=== PATIENT | male | born 1935 | race Caucasian/White ===

== ENCOUNTER → 2018-09-28 | Outpatient (CLI) | payer OTHER ==
[2016-02-09 06:45] VITALS: BP 103/71
[~2018-09-28] MED LIST: AMLO5TAB10 PO; APIX5TAB PO; CHOL2000 PO; LEVO50TA5 PO; LOSA1TAB19 PO; LOSA1TAB22 PO; METO-269 PO; METO25TA4 PO; REGADENOSON 0.4 MG/5 ML DISP.SYRIN. IV ONE; SACU1TAB7 PO; SIMV40TA3 PO; TAMS0.4C97 PO; TICA90TA PO; TRAZ-118 PO; WARF-31 PO; WARF-78 PO; WARF2.5T71 PO; losartan
--- NOTE | 2018-09-28 12:46 | CARD ---
MR#: [id number] Date of Study: 09/28/2018 Ordering Physician: ZAFAR ORELLANA, Referring Physician: ZAFAR ORELLANA, Tech: Silvia Liu [facility] APPROVED REPORT EXAM: Two-dimensional and M-mode echocardiogram with Doppler and color Doppler. Other Information Quality : AverageHR: 86bpm Rhythm : Atrial Fibrillation INDICATION Dyspnea 2D DIMENSIONS RVDd2.8 (2.9-3.5cm)Left Atrium(2D)4.7 (1.6-4.0cm) IVSd1.4 (0.7-1.1cm)Aortic Root(2D)3.6 (2.0-3.7cm) LVDd5.9 (3.9-5.9cm)LVOT Diameter2.3 (1.8-2.4cm) PWd1.1 (0.7-1.1cm)LVDs5.1 (2.5-4.0cm) FS (%) 14.2 %SV52.1 ml LVEF(%)29.6 (>50%) M-Mode DIMENSIONS Left Atrium(MM)3.75 (2.5-4.0cm)Aortic Root4.16 (2.2-3.7cm) Aortic Valve AoV Peak Henrique.127.9cm/sAoV VTI20.8cm AO Peak GR.6.5mmHgLVOT Peak Henrique.86.0cm/s AO Mean GR.3mmHgAVA (VMAX)2.86cm2 ELIN (VTI)2.02bj5ZJ P 1/2 Hiuv593bw Mitral Valve MV E Zmaxdpth49.7cm/sMV DECEL RHUZ804lo MV A Iglavolu18.4cm/sE/A Ratio2.4 Pulmonary Valve PV Peak Ndojcqgw82.1cm/s Tricuspid Valve TR P. Gahdqnea846lx/sRAP KKKMANLS1zeIf TR Peak Gr.79neWoTBMG94rjGd LEFT VENTRICLE The Left Ventricle is borderline dilated. There is mild concentric left ventricular hypertrophy. The ejection fraction is severely impaired. The Ejection Fraction is 25%. There is global hypokinesis of the left ventricle. Tissue Doppler imaging reveals moderate left ventricular diastolic dysfunction. RIGHT VENTRICLE The right ventricle is normal size. There is normal right ventricular wall thickness. RV Systolic fun ction is mildly reduced. ATRIA The left atrium is moderately dilated. The right atrium is moderately dilated. The interatrial septum is intact with no evidence for an atrial septal defect or patent foramen ovale as noted on 2-D or Do ppler imaging. AORTIC VALVE The aortic valve is calcified but opens well. The aortic valve is trileaflet. Doppler and Color Flow revealed mild to moderate aortic regurgitation. There is no significant aortic valvular stenosis. The re is no aortic valvular vegetation. MITRAL VALVE The mitral valve is normal in structure and function. There is no evidence of mitral valve prolapse. There is no mitral valve stenosis. Doppler and Color-flow revealed trace to mild mitral regurgitation . TRICUSPID VALVE The tricuspid valve is normal in structure and function. Doppler and Color Flow revealed trace tricus pid regurgitation. There is mild pulmonary hypertension. The PA pressure was estimated at 30 mmHg. Th ere is no tricuspid valve prolapse or vegetation. There is no tricuspid valve stenosis. PULMONIC VALVE Doppler and Color Flow revealed trace pulmonic valvular regurgitation. There is no pulmonic valvular stenosis. GREAT VESSELS The aortic root is normal in size. The ascending aorta is Mildly dilated. The IVC is dilated and roque apses >50% with inspiration. PERICARDIAL EFFUSION There is no evidence of significant pericardial effusion. Critical Notification Critical Value: No <Conclusion> The ejection fraction is severely impaired. The Ejection Fraction is 25%. There is global hypokinesis of the left ventricle. Doppler and Color Flow revealed mild to moderate aortic regurgitation. Doppler and Color Flow revealed trace tricuspid regurgitation. There is mild pulmonary hypertension. The PA pressure was estimated at 30 mmHg. Signed by : Zafar Orellana, Electronically Approved : 09/28/2018 12:46:28
--- NOTE | 2018-09-28 14:51 | RAD ---
MR#: [id number] Date of Study: 09/28/2018 Ordering Physician: ZAFAR ORELLANA, Referring Physician: JIMMY BOWENS Tech: JS Pace APPROVED REPORT Test Type: Pharmacological Stress Nurse/Tech: Lana Barriga RN Test Indications: Dyspnea Cardiac History: CABG x3 09',, Hypertension,former smoker, colon CA Medications: See Electronic Medical Record Medical History: See Electronic Medical Record Resting ECG: a-fib Resting Heart Rate: 90 bpm Resting Blood Pressure: 113/68mmHg Pretest Chest Pain: No chest pain Nurse/Tech Notes Irregular rhythm,S1,S2 and lungs diminished throughout. Consent: The procedure was explained to the patient in lay terms. Informed consent was witnessed. Cortez eout was entered into [employer]. History and Stress Test performed by JS Pace Pharm. Details Pharmacologic stress testing was performed using 0.4mg per 5ml of regadenoson given intravenously ove r 7-10 seconds. Stress Symptoms No chest pain or symptoms. POST EXERCISE Reason for Termination: Infusion complete Target HR: Yes Max HR: 120 bpm Max Blood Pressure: 118/54mmHg Blood Pressure response to exercise: Normal blood pressure response during stress. Heart Rate response to exercise: WNL Chest Pain: No. Arrhythmia: Yes. PVCs ST Change: No. INTERPRETATION Stress EKG Conclusion: Baseline EKG showed atrial fibrillation. Non diagnostic changes at peak stres s. Imaging Protocol IMAGE PROTOCOL: Rest Tc-99m/stress Tc-99m 1 day Rest: Stress: Viability: Radiopharm.Tc99m EmmcsjpcjWe33v Sestamibi Dose10.8mCi 32mCi Duration 16min. 13min. Img Date 09/28/2018 09/28/2018 Inj-Img Uucv32unq. 60min. Rest Admin Site:IV - Right HandAdministrator:JS Pace Stress Admin Site: IV - Right HandAdministrator: JIMMY MuellerTCB, ARRT (R)(N) STRESS DATA End Diast. Vol.164.0mlLVEDV index BSA78.0ml End Syst. Vol.114.0mlLVESV index BSA54.0ml Myocardial Ivgn671.0gEject. Imywtfzi86.0% Stress Scores Regional WT3.00Summed WT44.00 Regional WM2.00Summed WM42.00 LV Perfusion Scintigraphic images showed small fixed defect involving the mid to distal anterior wall consistent w ith previous myocardial infarction without any reversibility. Wall Motion Moderate left ventricular systolic dysfunction with ejection fraction calculated at 30%. LV Perf. Quant 17 Seg. SSS5.00 17 Seg. SRS4.00 17 Seg. SDS2.00 Stress Defect Extent (% LAD)12.50Rest Defect Extent (% LAD)2.50Rev. Defect Extent (% LAD)0.00 Stress Defect Extent (% LCX) 10.00Rest Defect Extent (% LCX)6.30Rev. Defect Extent (% LCX)0.00 Stress Defect Extent (% RCA)0.00Rest Defect Extent (% RCA)4.40Rev. Defect Extent (% RCA)0.00 Stress Defect Extent (% TRANG)11.50Rest Defect Extent (% TRANG)8.30Rev. Defect Extent (% TRANG)0.00 Conclusion 1. Regadenoson cardioisotope stress test showed small infarct involving the mid to distal anterior wa ll without any ischemia. 2. Moderate left ventricular systolic dysfunction with ejection fraction calculated at 30%. 3. Intermediate risk for cardiac events based on diminished left ventricle systolic function. 4. Baseline rhythm is atrial fibrillation. Signed by : Gamal Silva, Electronically Approved : 09/28/2018 14:51:18
== END | disposition home or self-care (01) ==
LOC: NM 09:30
PROVIDERS: ATTEND Internal Medicine Cardiovascular Disease
DX: I35.1 Nonrheumatic aortic (valve) insufficiency (principal); I27.20 Pulmonary hypertension, unspecified; I10 Essential (primary) hypertension; Z87.891 Personal history of nicotine dependence; Z85.038 Personal history of other malignant neoplasm of large intestine; Z95.1 Presence of aortocoronary bypass graft
CPT/HCPCS: 78452; 93017; 93306; 96374; A9500; J2785

== ENCOUNTER 2018-11-03 10:10 | Outpatient (CLI) | payer OTHER ==
[~2018-11-03] VITALS: Ht 177.8 cm; Wt 90.7 kg
[~2018-11-03 10:10] MED LIST changes: -CHOL2000 PO; -LEVO50TA5 PO; -LOSA1TAB22 PO; -METO-269 PO; -REGADENOSON 0.4 MG/5 ML DISP.SYRIN. IV ONE; -SACU1TAB7 PO; -TAMS0.4C97 PO; -TICA90TA PO; -WARF-31 PO; -WARF2.5T71 PO
[2018-11-03] MEDS ORDERED: LEVO50TA5 PO (10:31)
[2018-11-03] MEDS ORDERED: WARF2.5T71 PO (10:31)
[2018-11-03] MEDS ORDERED: TAMS0.4C97 PO (10:31)
[2018-11-03] MEDS ORDERED: WARF-31 PO (10:31)
[2018-11-03] MEDS ORDERED: CHOL2000 PO (10:31)
[2018-11-03 10:40] VITALS: BP 125/72
[2018-11-03 11:05] LABS: CALCIUM 9.4 mg/dL (8.5-10.1); CREATININE 1.6 mg/dL (0.7-1.3); GFR 41.4; POTASSIUM 4.1 mmol/L (3.5-5.1)
[2018-11-03 11:07] LABS: HEMATOCRIT 44.3 % (39.0-53.0); HEMOGLOBIN 15.4 g/dL (13.0-17.5); RED BLOOD COUNT 5.15 x10^6/uL (4.30-5.70); RED CELL DISTRIBUTION WIDTH 14.8 % (11.5-14.5); WHITE BLOOD COUNT 8.8 x10^3/uL (4.0-11.0)
[2018-11-03 11:26] LABS: PROTHROMBIN TIME PATIENT 27.1 SEC (11.7-14.0)
--- NOTE | 2018-11-03 11:47 | NUR ---
Per Dr. Christie cardiac cath cancelled for today due to INR 2.5. Patient has been taking Coumadin daily, took last dose yesterday.
== END 2018-11-03 12:00 | disposition home or self-care (01) ==
LOC: CCL 10:10
PROVIDERS: ATTEND Internal Medicine Cardiovascular Disease
DX: I25.10 Atherosclerotic heart disease of native coronary artery without angina pectoris (principal); Z53.8 Procedure and treatment not carried out for other reasons
CPT/HCPCS: 36415; 80048; 85027; 85610

== ENCOUNTER 2018-11-10 10:01 | Observation (INO) | payer OTHER ==
[~2018-11-10] VITALS: Ht 177.8 cm; Wt 89.6 kg
[2018-11-10] VITALS (13 sets, daily range): BP systolic 106–178; BP diastolic 54–82
[~2018-11-10 10:01] MED LIST changes: +CHOL2000 PO; +LEVO50TA5 PO; +TAMS0.4C97 PO; +WARF-31 PO; +WARF2.5T71 PO
[2018-11-10 10:45] LABS: HEMATOCRIT 43.1 % (39.0-53.0); HEMOGLOBIN 14.7 g/dL (13.0-17.5); RED BLOOD COUNT 5.04 x10^6/uL (4.30-5.70); WHITE BLOOD COUNT 8.9 x10^3/uL (4.0-11.0)
[2018-11-10 10:48] LABS: CALCIUM 9.5 mg/dL (8.5-10.1); CREATININE 1.6 mg/dL (0.7-1.3); GFR 41.4; POTASSIUM 3.9 mmol/L (3.5-5.1)
[2018-11-10 10:54] LABS: PROTHROMBIN TIME PATIENT 16.7 SEC (11.7-14.0)
[2018-11-10] MEDS ORDERED: METO-269 PO (10:54)
[2018-11-10] MEDS ORDERED: IV NORMAL SALINE 1000ML BAG 1,000 ML IV SCH (11:15)
[2018-11-10] MEDS ORDERED: LIDOCAINE 1% PF 2 ML VIAL. ONE (11:17)
--- NOTE | 2018-11-10 11:23 | NUR ---
notified Dr. Christie of pt's labs. new order to start iv fluids tko
[2018-11-10] MEDS ORDERED: LIDOCAINE 1% Multi-Dose 20 ML VIAL. ONE (11:53)
[2018-11-10] MEDS ORDERED: fentaNYL PF VIAL 100 MCG/2 ML VIAL ONE (11:53)
[2018-11-10] MEDS ORDERED: HEPARIN for IV BOLUS 10,000 UNIT/10 ML VIAL. ONE (11:53)
[2018-11-10] MEDS ORDERED: MIDAZOLAM HCL/PF 2 MG/2 ML VIAL. ONE (11:53)
[2018-11-10] MEDS ORDERED: VERAPAMIL 5 MG/2 ML VIAL. ONE ×2 (11:53→12:31)
[2018-11-10] MEDS ORDERED: NITROGLYCERIN 200 MCG/2 ML SYRINGE FOR CATH/VASC LAB. ONE ×2 (11:53→12:31)
[2018-11-10] MEDS ORDERED: BIVALIRUDIN 250 MG VIAL. IV ONE ×2 (12:26→12:45)
[2018-11-10] MEDS ORDERED: LIDOCAINE 1% Multi-Dose 20 ML VIAL. INJ ONE (12:30)
[2018-11-10] MEDS ORDERED: fentaNYL PF VIAL 100 MCG/2 ML VIAL IV ONE (12:30)
[2018-11-10] MEDS ORDERED: LIDOCAINE 1% PF 2 ML VIAL. INJ ONE (12:30)
[2018-11-10] MEDS ORDERED: MIDAZOLAM HCL/PF 2 MG/2 ML VIAL. IV ONE (12:30)
[2018-11-10] MEDS ORDERED: IODIXANOL 320 MG/ML 100 ML VIAL. IART ONE (12:30)
[2018-11-10 12:41] LABS: BASE EXCESS ABG 1 mmol/L (-3-3); HCO3 ABG 27 mmol/L (21-28); PCO2 ABG 51 mmHg (35-46); PO2 ABG 115 mmHg (65-108); SAT O2 ABG 98 % (92-99)
[2018-11-10 12:42] LABS: FIO2 ABG 36%
[2018-11-10] MEDS ORDERED: VERAPAMIL 5 MG/2 ML VIAL. IART ONE (12:45)
[2018-11-10] MEDS ORDERED: NITROGLYCERIN 200 MCG/2 ML SYRINGE FOR CATH/VASC LAB. IART ONE (12:45)
[2018-11-10] MEDS ORDERED: TICAGRELOR 90 MG TABLET. ONE (12:56)
[2018-11-10] MEDS ORDERED: TICAGRELOR 90 MG TABLET. PO ONE (13:00)
[2018-11-10] MEDS ORDERED: LOSA1TAB22 PO (13:52)
[2018-11-10] MEDS ORDERED: TAMS0.4C97 PO (13:52)
[2018-11-10] MEDS ORDERED: WARF-31 PO (14:09)
[2018-11-10] MEDS ORDERED: WARF2.5T71 PO (14:09)
[2018-11-10] MEDS ORDERED: SIMV40TA3 PO (14:12)
[2018-11-10] MEDS ORDERED: WARFARIN 5 MG TABLET. PO SCH (16:00)
[2018-11-10] MEDS: METOPROLOL SUCC 24HR ER 50 MG TAB.ER.24H. PO SCH (16:16)
--- NOTE | 2018-11-10 17:17 | CARD ---
MR#: [id number] Date of Study: 11/10/2018 Ordering Physician: ZAFAR CHRISTIE, Referring Physician: ZAFAR CHRISTIE, Tech: RT Bobby (R) APPROVED REPORT Technologist: Marleny Guerra RT (R) Nurse: Mayda Soares R.N. Procedure(s) performed: Fluoro time: 14.8 minutes Dose: 120 Gycm2 Contrast: 120 cc Moderate sedation: 72 minutes LHC, Coronary angiography, Bypass angiography, PCI of the SVG to D1 HISTORY The patient is a 82 year-old male with a history of : coronary artery disease, hypertension, dyslipid emia. INDICATION The indication(s) include : positive stress test, unstable angina , dyspnea. [facility] Clinical Frailty Scale [facility] Clinical Frailty Scale: Moderately Frail Heart Failure Heart Failure: Yes If Yes, Newly Diagnosed: No If Yes, HF Type: Systolic If Yes, NYHA Class: Class II PROCEDURE NARRATIVE After explaining the risks and benefits of the procedure and alternatives, informed consent was obtai adryan. The patient was brought electively to the cardiac catheterization lab in a fasting state. A peter eout was performed confirming the patient's name, date of , procedure, and site of procedure. A ll necessary personnel were wearing the appropriate protective equipment and radiation monitor device s. (See nursing notes for medications administered). The right groin was sterilely prepped and drap ed in the usual fashion. The right groin was infiltrated with 10 mL of 2% lidocaine for subcutaneous anesthesia. A 6 F sheath was inserted into the right femoral artery without difficulty. Right and left coronary angiography was performed using a JR4 and JL4 catheter. Bypass angiography was perform ed with a JR4 catheter. Left ventricular end diastolic pressure was obtained with a pigtail catheter and pullback was performed after left ventriculography. All catheter exchanges and advancements were performed over a guidewire. At case completion the right femoral sheath was removed and hemostasis was achieved with an Angioseal Device after limited femoral angiography confirmed adequate vessel siz e and anatomy. There were no acute complications. HEMODYNAMICS: AO: 140/80 LVEDP 15 mm Hg No gradient on LV to aortic pullback. LEFT VENTRICULOGRAM: Deferred due to known EF of 30%. CORONARY ANGIOGRAPHY: LM is a large caliber vessel with normal angiographic appearance. LAD is a small caliber vessel that is seen to fill faintly via a HUI graft and the distal vessel is without significant disease. Ramus is a moderate caliber vessel with a proximal 100% occlusion. The distal vessel fills via a vein graft. LCx is a moderate caliber non-dominant vessel with mild luminal irregularities. OM1 is a moderate caliber vessel with mild luminal irregularities. RCA is a large caliber dominant vessel with normal angiographic appearance. RPDA is a moderate caliber vessels with a mid 100% occlusion. The distal vessel is seen to fill via a patent vein graft but the outflow is poor. BYPASS ANGIOGRAPHY: HUI to LAD - widely patent without anastomotic stenosis (Due to significant subclavian tortuosity, t he HUI was not injected selectively. SVG to RCA - Widely patent but the vessel distal to the anastomosis is small in caliber. SVG to Ramus - Has an ostial 90% stenosis. INTERVENTIONAL TECHQNIQUE: Bivalirudin was used for anticoagulation. Through a 6Fr JR4 guide catheter, a 0.014'' High Brew Coffeewater wire w as advanced to the distal ramus. Balloon angioplasty was performed with a Trek 3.0/12 mm balloon and then stented with Resolute 4.0/15 OLGA LIDIA at 14 yair. Final angiography revealed excellent stent expansion . A guideline was required to deliver the stent due to angulation and complex tortuousity, making thi s a complex case. Otherwise, no complications noted. The patient received Ticagrelor 180mg at [facility]. Syntax Score If Not STEMI or NSTE-ACS, Syntax Score: Intermediate INDIA Flow INDIA Flow (Pre-Intervention): INDIA-3 INDIA Flow (Post-Intervention): INDIA-3 Conclusion 1. Severe three vessel coronary artery disease. 2. 3/3 grafts patent. 3. Normal left sided filling pressures. 4. Successful PCI of the SVG to Ramus with a Resolute 4.0/15 OLGA LIDIA. Recommendations 1. Dyspnea is out of proportion to CAD. He has had chronic ischemic CMP from 2008. The LAD distal ant erior wall, apex and distal inferior wall supplied by a small caliber LAD and PDA area is likely infa rcted. 2. Consider outpt pulmonary w/u. 3. Cardiac rehab 4. Continue warfarin and Ticagrelor 90mg bid. Continue asa 81mg daily until therapeutic on warfarin. Signed by : Zafar Christie, Electronically Approved : 11/10/2018 17:16:44
[2018-11-10] MEDS ORDERED: WARFARIN 5 MG TABLET. PO ONE (17:30)
--- NOTE | 2018-11-10 18:11 | NUR ---
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 Vitals stable, right groin is soft, no bleeding. Patient accompanied by son and son translates for patient. Patient oriented to unit and routines and instructed to lay flat for 3 hours. Will continue to monitor.
[2018-11-10] MEDS ORDERED: SIMVASTATIN 40 MG TABLET. PO SCH (21:00)
[2018-11-10] MEDS ORDERED: TAMSULOSIN 0.4 MG CAP.ER.24H. PO SCH (21:00)
[2018-11-10] MEDS: TICAGRELOR 90 MG TABLET. PO SCH (21:53)
[2018-11-11 02:51] VITALS: BP 163/85
--- NOTE | 2018-11-11 05:40 | NUR ---
PT. WOULDN'T KEEP OXYGEN MONITORING PROB ON FOR NOC STUDY. HE KEPT RIPPING IT OF HIS FINGER. NURSE INFORMED ABOUT PT'S BEHAVIOR
--- NOTE | 2018-11-11 06:25 | NUR ---
Pt was confused and restless throughout shift, non combative or agitated, but was unable to obtain restful sleep. Pt is sudanese speaking only, language barrier added to difficulty. Pt removed his own IV @ 2200, and immediately removed O2 probe for nocturnal sleep study. Pt late in shift activated his own code blue button, granddaughter now at bedside to provide extra care. VSS, bed in low/locked position, call light within reach, will continue to monitor for status changes.
[2018-11-11 07:25] VITALS: BP 137/74
[2018-11-11] MEDS ORDERED: ASPIRIN ENTERIC COATED 81 MG TABLET.DR. PO SCH (08:00)
[2018-11-11 08:47] VITALS: BP 137/74
[2018-11-11] MEDS: METOPROLOL SUCC 24HR ER 50 MG TAB.ER.24H. PO SCH (08:47)
[2018-11-11] MEDS: TICAGRELOR 90 MG TABLET. PO SCH (08:47)
[2018-11-11] MEDS ORDERED: METOPROLOL SUCC 24HR ER 50 MG TAB.ER.24H. PO SCH (09:00)
[2018-11-11] MEDS ORDERED: TICA90TA PO (09:26)
[2018-11-11] MEDS ORDERED: SACU1TAB7 PO (09:26)
--- NOTE | 2018-11-11 10:14 | DISCH ---
DISCHARGE INSTRUCTIONS Condition on Discharge Condition on Discharge: Stable Activity After Discharge Activity Instructions for Disc: Activity as tolerated Lifting Instructions after Dis: No heavy lifting, No pulling or pushing, Do not lift >10 pounds Driving Instructions after Dis: Do not drive (for 4 days) Diet after Discharge Diet after Discharge: Cardiac Wound Incision Care Wound/Incision Care: No wound care needed Checks after Discharge Checks after discharge: Check blood press - daily Follow-Up Follow up with: PCP 1-2 weeks Follow Up With: Dr. Christie 11/25/18 for BP check and 12/28/18 for hospital f/u Treatment/Equipment after DC Adaptive Equipment Issued: None ADIS KURTZ APRN Nov 11, 2018 10:14
--- NOTE | 2018-11-11 10:41 | NUR ---
Discharge instructions reviewed with patients son. Follow ups, prescriptions and samples given to patient. Son verbalizes understanding.
[2018-11-11] MEDS ORDERED: WARFARIN 2.5 MG TABLET. PO SCH (16:00)
--- NOTE | 2018-11-11 16:33 | PDOC3 ---
Discharge Summary Visit Information Date of Admission: Nov 10, 2018 Date of Discharge: Nov 11, 2018 Admitting Diagnosis Comment: CAD Dyspnea Chronic systolic HF ICM Persistent AFIB Hypertension Final Diagnosis CAD Dyspnea AFIB Chronic systolic HF ICM Hypertension Brief Hospital Course Allergies Allergies Coded Allergies Type Severity Reaction Last Updated Verified No Known Drug Allergies 11/09/13 No Vital Signs Vital Signs Date Time Temp Pulse Resp B/P (MAP) Pulse Ox O2 Delivery O2 Flow Rate FiO2 11/11/18 08:47 107 137/74 11/11/18 08:00 Room Air 11/11/18 07:25 97.6 20 98 97.6 11/10/18 15:00 2.0 Lab Results Laboratory Tests Test 11/10/18 10:25 11/10/18 12:37 White Blood Count 8.9 x10^3/uL (4.0-11.0) Red Blood Count 5.04 x10^6/uL (4.30-5.70) Hemoglobin 14.7 g/dL (13.0-17.5) Hematocrit 43.1 % (39.0-53.0) Mean Corpuscular Volume 86 fL (79-100) Mean Corpuscular Hemoglobin 29 pg (25-35) Mean Corpuscular Hemoglobin Concent 34 g/dL (31-37) Red Cell Distribution Width 15.0 % (11.5-14.5) Platelet Count 186 x10^3/uL (140-400) Prothrombin Time 16.7 SEC (11.7-14.0) Prothromb Time International Ratio 1.4 (0.8-1.1) Sodium Level 139 mmol/L (136-145) Potassium Level 3.9 mmol/L (3.5-5.1) Chloride Level 102 mmol/L (98-107) Carbon Dioxide Level 29 mmol/L (21-32) Anion Gap 8 (6-14) Blood Urea Nitrogen 24 mg/dL (8-26) Creatinine 1.6 mg/dL (0.7-1.3) Estimated GFR (Cockcroft-Gault) 41.4 Glucose Level 103 mg/dL (70-99) Calcium Level 9.5 mg/dL (8.5-10.1) O2 Saturation 98 % (92-99) Arterial Blood pH 7.35 (7.35-7.45) Arterial Blood pCO2 at Patient Temp 51 mmHg (35-46) Arterial Blood pO2 at Patient Temp 115 mmHg (65-108) Arterial Blood HCO3 27 mmol/L (21-28) Arterial Blood Base Excess 1 mmol/L (-3-3) FiO2 36% Brief Hospital Course Mr. Sanders is a 82 old male, with a history of CAD s/p CABG, Hypertension, CMP, and AFIB, who presented to the office with complaints of dyspnea. Echo showed LVEF 25%, which is basically unchanged from prior. Stress test notable for prior infarct, but no reversible ischemia. Due to ongoing complaints of dyspnea, patient underwent cardiac catheterization for definitive evaluation. Coronary angiogram notable for patent HUI to LAD and SVG to RCA. SVG to Ramus with a 90% ostial stenosis. Patient underwent successful PCI of the SVG to Ramus with a Resolute 4.0/15 OLGA LIDIA. Left sided filling pressures normal. Patient was monitored overnight without complications. Right groin arteriotomy site soft, clean, and dry. Neurovascular status intact. Lungs CTA. Dyspnea is out of proportion to CAD. Six-minute walk performed without desaturation. Consider outpatient pulmonary evaluation. DAPT with ASA and Brilinta initiated. Due to cardiomyopathy, we will discontinue Losartan/HCTZ and start Entresto 24/26mg PO BID. Patient to f/u in our office for BP check 11/25/18. Discharge Information Condition at Discharge: Improved Follow Up: Weeks (2 weeks for BP check. ) Disposition/Orders: D/C to Home Scheduled Cholecalciferol (Vitamin D3) (Vitamin D) 2,000 Unit Capsule, 1 CAP PO DAILY for supplement, #30 Ref 3 (Reported) Entered as Reported by: CELSO DAVID on 11/03/18 1031 Last Taken: Unknown Dose on 11/09/18 Last Action: Reviewed on 11/10/18 1352 by RICO RODRIGUEZ Losartan/Hydrochlorothiazide (Losartan-Hctz 100-25 Mg Tab) 1 Each Tablet, 1 TAB PO DAILY for htn, #30 Ref 5 (Reported) Entered as Reported by: RICO RODRIGUEZ on 11/10/18 1352 Last Taken: Unknown Dose on Unknown Date & Time Last Action: Reviewed on 11/10/18 1410 by RICO RODRIGUEZ Metoprolol Succinate (Toprol Xl) 50 Mg Tab.er.24h, 50 MG PO DAILY for FOR HYPERTENSION, #30 Ref 0 (Reported) Entered as Reported by: CELSO DAVID on 11/10/18 1054 Last Taken: Unknown Dose on 11/09/18 Last Action: Converted on 11/10/181410 by RICO RODRIGUEZ Sacubitril/Valsartan (Entresto 49 mg-51 mg Tablet) 1 Each Tablet, 0.5 EACH PO BID for heart failure for 30 Days, #30 Ref 2 Prescribed by: ADIS KURTZ APRN on 11/11/18 0926 Simvastatin (Simvastatin) 40 Mg Tablet, 1 TAB PO QHS for cholesterol, #30 Ref 5 (Reported) Entered as Reported by: RICO RODRIGUEZ on 11/10/18 141 Last Taken: Unknown Dose on Unknown Date & Time Last Action: Converted on 11/10/181411 by RICO RODRIGUEZ Tamsulosin Hcl (Flomax) 0.4 Mg Cap.er.24h, 1 CAP PO HS for prostate, #30 Ref 11 (Reported) Entered as Reported by: RICO RODRIGUEZ on 11/10/18 1352 Last Taken: Unknown Dose on Unknown Date & Time Last Action: Continued on 11/10/181410 by RICO RODRIGUEZ Ticagrelor (Brilinta) 90 Mg Tablet, 90 MG PO BID for coronary artery disease for 30 Days, #60 Ref 2 Prescribed by: ADIS KURTZ APRN on 11/11/18 0926 Warfarin Sodium (Warfarin Sodium) 2.5 Mg Tablet, 2.5 MG PO QMWF for blood thinner, (Reported) Entered as Reported by: RICO RODRIGUEZ on 11/10/18 140 Last Taken: Unknown Dose on Unknown Date & Time Last Action: Reviewed on 11/10/181409 by RICO RODRIGUEZ Warfarin Sodium (Warfarin Sodium) 5 Mg Tablet, 5 MG PO QTUTHSASU for blood thinner, #30 (Reported) Entered as Reported by: RICO RODRIGUEZ on 11/10/18 140 Last Taken: Unknown Dose on Unknown Date & Time Last Action: Converted on 11/10/181410 by RICO RODRIGUEZ Miscellaneous Medications [losartan] , (Reported) Entered as Reported by: STEFANIE MENDEZ on 02/08/16 1452 Patient Instructions Patient Instructions GENERAL INSTRUCTIONS: 1. Your dressing should be removed prior to leaving the hospital. 2. It is OK to shower the day after your procedure. 3. If you received stents, be sure to carry your stent information card with you in your wallet/purse at all times. 4. Call the office immediately at [phone] if you notice any fever or if there is redness, worsening tenderness/pain, increased bruising, or drainage from the puncture site. 5. Should you have bleeding from the site, lie down immediately & put pressure on the site. The pressure should be hard enough to stop the bleeding. Have the nearest person call 911. DO NOT try to drive to the ER with active bleeding. 6. If you notice a change in color, coolness to touch, or loss of feeling in the affected extremity, come to the emergency room. Please have someone drive you or call 911 if no one is available. DO NOT drive yourself. 7. If you normally take glucophage (metformin), please do not take this medicine for 48 hours following your procedure. 8. DO NOT STOP TAKING YOUR PLAVIX OR ASPIRIN UNLESS IT IS CLEARED BY A MAMMOGRAPHY SUPERVISOR OF YOUR LEDGE MAN AT OUR OFFICE. 9. QUIT SMOKING: the [place] [employer], [place] [employer], & [place] [employer] have cessation resources available on their websites 10. Please have someone available to drive you home from the hospital as you may be limited by sedation medications given during the procedure. Femoral (Groin) access: 1. Do no lifting, pushing, pulling, bending, stooping, or recurrent stair climbing for 3 days following your procedure. 2. Once past the first 3 days, do not do any HEAVY exertion or lifting for one week following the procedure. No gym workouts, running, lifting greater than a gallon of milk, etc 3. Do not submerge in bath or pool for one week. OK to drive 3 days following your procedure, but if going long distance, do not go alone & take hourly breaks to get out of car and walk around. Radial Artery (Wrist) access: 1. No pushing, pulling, lifting, typing, or anything that requires repetitive use/movement of the affected wrist for 3 days following your procedure. 2. OK to drive the day following your procedure. (This is because of effects of sedating medications.) Call the office at [phone] for any questions or concerns. ADIS KURTZ APRN Nov 11, 2018 16:33
--- NOTE | 2018-11-21 15:43 | PDOC ---
Provider Note Provider Note CARDIOLOGY HISTORY AND PHYSICAL - LATE ENTRY 11/10/2018 Procedure / Surgery: Cardiac catheterization with possible PCI Procedure / Surgery Date: November 10, 2018 Physician: florencia Type of Anesthesia: Moderate sedation Current condition / Illness 82-year-old male with exertional dyspnea and history of coronary artery disease status post bypass. He was evaluated in the office for significant lifestyle limiting dyspnea and after now abnormal stress test was brought back to the office to discuss the risks and benefits of further invasive evaluation. He presents today for elective outpatient cardiac catheterization Past Medical History 1. Atrial fibrillation 2. HTN 3. CAD s/p CABG Past Surgical History Current medications / Dosages: See MRAD - reviewed and authenticated as entered by the nurse. Allergies / Medication Reactions: NKDA Review of Systems: notable for exertional dysnpea. Otherwise, negative for 05/01 systems reviewed. Physician Exam and Overall Clinical Assessment Height and Weight, Blood Pressure, Pulse, Respiratory Rate, Temperature Cardiovascular Irr irr, no m/r/g. Respiratory CTAB Abdomen Soft, NT/ND. +BS Other as appropriate Mental Status: A/O x 3 Ancillary Tests / Indications MPI - EF 30%. anterior infarct. Impression 1. CAD with exertional dyspnea and abnormal stress test. Plan -Cardiac cath Post Procedure Sedation Recovery Note: Patient to received fentanyl and versed for sedation ZAFAR ORELLANA MD November 21, 2018 15:43
== END 2018-11-11 10:43 | disposition home or self-care (01) ==
LOC: CCL 10:01 → 2 NORTH 12:15
PROVIDERS: ADMIT Internal Medicine Cardiovascular Disease; ATTEND Internal Medicine Cardiovascular Disease
DX: I25.10 Atherosclerotic heart disease of native coronary artery without angina pectoris (principal); I48.91 Unspecified atrial fibrillation; I43 Cardiomyopathy in diseases classified elsewhere; I11.0 Hypertensive heart disease with heart failure; I50.22 Chronic systolic (congestive) heart failure; Z95.1 Presence of aortocoronary bypass graft
CPT/HCPCS: 36415; 36600; 80048; 82805; 85027; 85610; 93459; 94618; 96374; 96375; C1713; C1725; C1760; C1769; C1887; C1892; C9604; G0269; G0378; G0379; J0583; J1644; J2250; J3010; J3490; J7030; Q9967; 92937; 99152; 99153; C1771

== ENCOUNTER → 2021-05-16 | Outpatient (CLI) | payer BC ==
[~2021-05-16] MED LIST changes: +AMLO-186 PO; -AMLO5TAB10 PO; +LOSA1TAB22 PO; +METO-269 PO; +SACU1TAB7 PO; +SIMV40TA18 PO; -SIMV40TA3 PO; +TICA90TA PO; -WARF-78 PO; +WARF5TAB2 PO
--- NOTE | 2021-05-18 14:02 | CARD ---
MR#: [id number] Date of Study: 05/16/2021 Ordering Physician: ZAFAR ORELLANA, Referring Physician: ZAFAR ORELLANA, Tech: Flor Mooney [facility] APPROVED REPORT EXAM: Two-dimensional and M-mode echocardiogram with Doppler and color Doppler. INDICATION Cardiac Disease: CAD RISK FACTORS Hypertension Obesity 2D DIMENSIONS RVDd3.9 (2.9-3.5cm)Left Atrium(2D)4.2 (1.6-4.0cm) IVSd1.2 (0.7-1.1cm)Aortic Root(2D)3.8 (2.0-3.7cm) LVDd4.8 (3.9-5.9cm)LVOT Diameter2.3 (1.8-2.4cm) PWd1.2 (0.7-1.1cm)LVDs3.5 (2.5-4.0cm) FS (%) 27.4 %SV56.6 ml Aortic Valve AoV Peak Henrique.152.5cm/sAoV VTI24.0cm AO Peak GR.9.3mmHgLVOT Peak Henrique.72.2cm/s AO Mean GR.4mmHgAVA (VMAX)1.96cm2 AI P 1/2 [id number] Mitral Valve MV E Yarfozac84.6cm/sMV DECEL QAWA701an MV A Rdycrlhh36.2cm/sE/A Ratio1.9 Tricuspid Valve TR P. Yjvizybv204lu/sTR Peak Gr.28mmHg LEFT VENTRICLE The left ventricle is normal size. There is mild concentric left ventricular hypertrophy. Left ventri cular systolic function is moderately decreased. LV estimated ejection fraction is 35%. There is rusty bal hypokinesis of the left ventricle. RIGHT VENTRICLE The right ventricle is normal size. There is normal right ventricular wall thickness. Systolic functi on is mildly reduced. ATRIA The left atrium size is normal. The right atrium size is normal. The interatrial septum is intact wit h no evidence for an atrial septal defect or patent foramen ovale as noted on 2-D or Doppler imaging. AORTIC VALVE The aortic valve is normal in structure and function. Doppler and Color Flow revealed mild aortic reg urgitation. There is no significant aortic valvular stenosis. MITRAL VALVE The mitral valve is normal in structure and function. There is no evidence of mitral valve prolapse. There is no mitral valve stenosis. Doppler and Color-flow revealed mild mitral regurgitation. TRICUSPID VALVE The tricuspid valve is normal in structure and function. Doppler and Color Flow revealed mild tricusp id regurgitation. Estimated PAP 31 mmHg. There is no tricuspid valve stenosis. PULMONIC VALVE Doppler and Color Flow revealed mild pulmonic valvular regurgitation. GREAT VESSELS The aortic root is mildly enlarged. The ascending aorta is mildly dilated. The IVC is normal in size and collapses >50% with inspiration. PERICARDIAL EFFUSION There is no evidence of significant pericardial effusion. Critical Notification Critical Value: No <Conclusion> The left ventricle is normal size. Left ventricular systolic function is moderately decreased. LV estimated ejection fraction is 35%. There is global hypokinesis of the left ventricle. There is mild concentric left ventricular hypertrophy. Doppler and Color Flow revealed mild aortic regurgitation. There is no significant aortic valvular stenosis. Doppler and Color-flow revealed mild mitral regurgitation. Doppler and Color Flow revealed mild tricuspid regurgitation. Estimated PAP 31 mmHg. The aortic root is mildly enlarged. Signed by : Brock Arora MD Electronically Approved : 05/18/2021 14:02:06
== END ==
LOC: ECHO 10:45
PROVIDERS: ATTEND Internal Medicine Cardiovascular Disease
DX: I08.8 Other rheumatic multiple valve diseases (principal); I25.5 Ischemic cardiomyopathy; I25.10 Atherosclerotic heart disease of native coronary artery without angina pectoris
CPT/HCPCS: 93306

== ENCOUNTER → 2021-11-06 | Outpatient (CLI) | payer BC ==
[~2021-11-06] VITALS: Ht 175.3 cm; Wt 90.9 kg
[2021-11-06] VITALS (14 sets, daily range): BP systolic 108–164; BP diastolic 52–84
[~2021-11-06] MED LIST changes: +DONE5TAB56 PO; +FINA5TAB4 PO; +HEPARIN for IV BOLUS 10,000 UNIT/10 ML VIAL. ONE; +IODIXANOL 320 MG/ML 100 ML VIAL. IART ONE; +IODIXANOL 320 MG/ML 100 ML VIAL. ONE; +LIDOCAINE 1% Multi-Dose 20 ML VIAL. INJ ONE; +LIDOCAINE 1% Multi-Dose 20 ML VIAL. ONE; +MIDAZOLAM HCL/PF 2 MG/2 ML VIAL. IV ONE; +MIDAZOLAM HCL/PF 2 MG/2 ML VIAL. ONE; +NITROGLYCERIN 200 MCG/2 ML SYRINGE FOR CATH/VASC LAB. ONE; +VERAPAMIL 5 MG/2 ML VIAL. ONE; +fentaNYL PF VIAL 100 MCG/2 ML VIAL IV ONE; +fentaNYL PF VIAL 100 MCG/2 ML VIAL ONE
[2021-11-06 09:09] LABS: HEMATOCRIT 42.6 % (39.0-53.0); HEMOGLOBIN 14.3 g/dL (13.0-17.5); RED BLOOD COUNT 4.91 x10^6/uL (4.30-5.70); RED CELL DISTRIBUTION WIDTH 15.6 % (11.5-14.5); WHITE BLOOD COUNT 8.8 x10^3/uL (4.0-11.0)
[2021-11-06 09:19] LABS: PROTHROMBIN TIME PATIENT 18.1 SEC (11.7-14.0)
[2021-11-06 09:40] LABS: CALCIUM 9.1 mg/dL (8.5-10.1); CREATININE 1.5 mg/dL (0.7-1.3); GFR 44.3
--- NOTE | 2021-11-06 09:40 | EKG ---
[facility] [address] [place] [address] Test Date: 2021-11-06 Test Time: 09:36:45 Pat Name: FREDDIE POE Department: Room: Gender: M Shoe Caser: ATUL : 1935 Requested By: ZAFAR ORELLANA Order Number: [id number] Reading MD: Measurements Intervals [place] Rate: 100 P: GA: QRS: -19 QRSD: 102 T: 56 QT: 368 QTc: 478 Interpretive Statements IRREGULAR RHYTHM, NO P-WAVE FOUND LEFTWARD AXIS PROLONGED QT NO SPECIFIC ECG ABNORMALITIES RI6.02 Compared to ECG 02/08/2016 13:28:02 Left-axis deviation now present Prolonged QT interval now present Atrial fibrillation no longer present
[2021-11-06 09:48] LABS: POTASSIUM 4.6 mmol/L (3.5-5.1)
--- NOTE | 2021-11-06 11:13 | CARD ---
MR#: [id number] Date of Study: 11/06/2021 Ordering Physician: ZAFAR CHRISTIE, Referring Physician: ZAFAR CHRISTIE, Tech: RT Jerel(R) APPROVED REPORT Technologist: RT Jerel(R) Nurse: Mayda Soares RN Procedure(s) performed: FL TIME: 8.5 MIN DOSE: 56 GYCM2 CONTRAST: 48 ML MODERATE SEDATION: 55 MIN LHC, RHC, Coronary angiography, Bypass angiography HISTORY The patient is a 85 year-old with a history of : coronary artery disease, hypertension, dyslipidemia. INDICATION The indication(s) include : dyspnea. [facility] Clinical Frailty Scale [facility] Clinical Frailty Scale: Moderately Frail Heart Failure Heart Failure: Yes If Yes, Newly Diagnosed: No If Yes, HF Type: Systolic If Yes, NYHA Class: Class III CASE TECHNIQUE IV conscious sedation was used throughout procedure with appropriate monitoring and was performed in the presence of a registered nurse who was an independent trained observer other than the physician p erforming the procedure. During this case, Fluoroscopy and low osmolar contrast were used for imaging . Specimen(s) Removed: N/A Estimated Blood loss: 15 cc's. PROCEDURE NARRATIVE Clinical information: 85-year-old male comes into the [facility] for a planned outpatient right and left heart catheterizatio n for exertional dyspnea. Procedure details: After appropriate informed consent the right groin was prepped and draped in usual sterile fashion. Under 1% lidocaine local anesthesia a 6 [place] sheath was placed in the right femoral artery and a 8 [place] sheath was placed in the right femoral vein. Diagnostic angiography was then performed with a 7.5 [place] PA catheter and pressures and saturations were obtained. A 6 [place] JL 4, JR4, RIANA and M PA catheters were used to perform diagnostic coronary angiography. At case completion catheters and sheaths were removed and hemostasis was obtained via manual compression. No acute complications Findings: Right heart catheterization: RA 12 RV 36/7/12 PA 32/13/18 Wedge 12 mmHg PA saturation 69% FA saturation 93% [place] cardiac output 5.2 L/min, cardiac index 2.5 Coronary angiography: Left main is a large-caliber vessel with a distal 30% narrowing. LAD is a moderate caliber vessel with a proximal 100% occlusion Left circumflex is a nondominant moderate caliber vessel with mild proximal 20% stenosis OM1 is a moderate caliber vessel with proximal 50% stenosis RCA is a large-caliber dominant vessel with a mid 30% stenosis PDA is a small caliber vessel with a proximal 100% occlusion Bypass angiography: HUI to the LAD is widely patent. Due to subclavian tortuosity a nonselective injection only was per formed SVG to first diagonal is patent with a patent proximal/ostial stent SVG to PDA is patent with moderate diffuse irregularities of up to 30% Conclusion 1. Mildly elevated biventricular filling pressures 2. No significant pulmonary hypertension 3. Normal cardiac output 4. Three-vessel coronary artery disease with 3 of 3 patent bypass grafts Recommendations 1. Consider pulmonary referral for further evaluation of exertional dyspnea. 2. Patient has been optimized from a cardiovascular perspective and has no significant new ischemic burden compared to his previous cardiac catheterization. Signed by : Zafra Christie, Electronically Approved : 11/06/2021 11:13:32
--- NOTE | 2021-11-06 16:06 | NUR ---
Discharge Note: FREDDIE POE Discharge instructions and discharge home medications reviewed with Family Member and a copy given. All questions have been answered and understanding verbalized. Dressing to R groin dry and intact The following instructions and handouts were given: groin site care, sedation Discontinued lines and drains: Peripheral IV intact. Patient discharged to Home or Self Care with Family Member via Wheelchair MARTINEZ MCNEIL Addendum: 11/06/21 at 1609 by IKER DOUGHERTY RN Amended: Links added.
== END | disposition home or self-care (01) ==
LOC: CCL 08:34
PROVIDERS: ATTEND Internal Medicine Cardiovascular Disease
DX: I25.10 Atherosclerotic heart disease of native coronary artery without angina pectoris (principal); I25.5 Ischemic cardiomyopathy; I12.9 Hypertensive chronic kidney disease with stage 1 through stage 4 chronic kidney disease, or unspecified chronic kidney disease; N18.9 Chronic kidney disease, unspecified; I48.91 Unspecified atrial fibrillation; Z87.891 Personal history of nicotine dependence; Z79.899 Other long term (current) drug therapy; Z98.890 Other specified postprocedural states
CPT/HCPCS: 36415; 80048; 85027; 85610; 93005; 93461; 99152; 99153; C1769; C1773; C1894; J1644; J2250; J3010; J3490; Q9967